=== PATIENT | female | born 1975 | race American Indian/Alaskan Native ===

== ENCOUNTER 2017-01-18 01:59 | Emergency (ER) | payer MEDICAID ==
[2017-01-18] MEDS ORDERED: ZOFRAN ODT PO ONE (03:36)
[2017-01-18] MEDS ORDERED: NORMODYNE IV ONE (03:42)
[2017-01-18] MEDS ORDERED: ZOFRAN IV ONE (03:42)
[2017-01-18 04:28] LABS: Hematocrit 31.4 % (30.3-42.9); Hemoglobin 10.5 gm/dl (10.1-14.3); Mean Corpuscular HGB Conc 33 % (30-34); Mean Corpuscular Hemoglobin 32 pg (28-32); Mean Corpuscular Volume 97 fl (79-97); Platelet Count 241 K/mm3 (140-440); Red Blood Count 3.25 M/mm3 (3.65-5.03)
--- NOTE | 2017-01-18 04:37 | Emergency Department Report ---
ED Headache HPI - General Chief Complaint: Extremity Injury, Lower Stated Complaint: VOMITING,FEET SWOLLEN Time Seen by Provider: 01/18/17 02:50 Source: patient Exam Limitations: no limitations - History of Present Illness Initial Comments: 41-year-old female with a past medical history migraines and hypertension presents to the hospital status post vaginal delivery on the . Patient states that the child was 36 wks premature. Patient was discharged on the at 1 PM and felt fine. Since she's been home she has developed lower extremity swelling and headache. Pain rated 8/10 intensity. Patient has a long-standing history of migraines since her 20s and also a history of hypertension even prior to . During her she was taking Procardia 30 mg which was increased to 60 mg towards the end of her . She was informed that the higher blood pressure was secondary to weight gain from the . Closer to her delivery patient was developing more frequent worsening headache and elevated blood pressure and therefore was delivered. She denies diagnosis of preeclampsia. Patient had her last dose of Procardia 60 mg at 9 AM prior to being discharged from the hospital. At the patient returned home she had episode of vomiting, complains of pressure behind her eyes that feels like the beginning of her migraine, and lower extremity edema with pain to her feet with palpation and walking. Patient denies having anything previous history of vomiting with previous headaches/migraines and therefore was concerned. Patient also states that the physicians at [facility] stated she would like any further workup of her chronic headaches including a CT scan was to could not perform because she was . Patient insisting that we take her blood pressure from her left arm because it is more accurate than her right. No complaints of chest pain, shortness of breath, or abdominal pain. Allergies/Adverse Reactions: Allergies pineapple Allergy (Verified 01/18/17 02:10) Swelling Home Medications: Ambulatory Orders Docusate Sodium [Colace] 100 mg PO BID PRN 01/18/17 Ferrous Sulfate [Feosol] 325 mg PO BID 01/18/17 Ibuprofen [Motrin] 800 mg PO Q8HR PRN 01/18/17 NIFEdipine [Nifedipine ER] 60 mg PO DAILY 01/18/17 ED Review of Systems ROS: Stated complaint: VOMITING,FEET SWOLLEN Other details as noted in HPI Comment: All other systems reviewed and negative Other: Constitutional: No fevers chills Eyes: No eye pain visual changes ENT: No ear pain or throat pain Neck: Denies pain Respiratory: Denies cough wheezing shortness of breath Cardiovascular: Denies chest pain, palpitations, syncope GI: Denies abdominal pain, nausea, vomiting, diarrhea : Denies dysuria Musculoskeletal: as per hpi Skin: Denies rash, lesions, erythema Neurologic: as per hpi Psychiatric: Denies suicidal ideation, hallucinations ED Past Medical Hx - Past Medical History Previous Medical History?: Yes Hx Hypertension: Yes Hx Headaches / Migraines: Yes - Surgical History Past Surgical History?: No - Social History Smoking Status: Never Smoker Substance Use Type: None - Medications Home Medications: Home Medications Medication Instructions Recorded Confirmed Last Taken Type Docusate Sodium [Colace] 100 mg PO BID PRN 01/18/17 01/18/17 Unknown History Ferrous Sulfate [Feosol] 325 mg PO BID 01/18/17 01/18/17 Unknown History Ibuprofen [Motrin] 800 mg PO Q8HR PRN 01/18/17 01/18/17 Unknown History NIFEdipine [Nifedipine ER] 60 mg PO DAILY 01/18/17 01/18/17 Unknown History ED Physical Exam - General Limitations: No Limitations - Other Other exam information: General: No limitations, patient is alert in no acute distress Head exam: Atraumatic, normocephalic Eyes exam: Normal appearance ENT: Moist mucous membrane, normal oropharynx Neck exam: Normal inspection, full range of motion, no meningismus Respiratory exam: Clear to auscultation bilateral, no wheezes, rales, crackles Cardiovascular: Normal rate and rhythm, normal heart sounds Abdomen: Soft, nondistended, and nontender, with normal bowel sounds, no rebound, or guarding Extremity: Full range of motion normal inspection, 1+ edema to lower extremities to palpation Back: Normal Inspection, full range of motion, no tenderness Neurologic: Alert, oriented x3, cranial nerves intact, no motor or sensory deficit Psychiatric: normal affect, normal mood Skin: Warm, dry, intact ED Course Vital Signs 01/18/17 01/18/17 01/18/17 02:00 02:46 03:44 Temperature 98 F Pulse Rate 81 74 95 H Respiratory 20 16 18 Rate Blood Pressure 141/97 Blood Pressure 140/85 160/95 [Left] O2 Sat by Pulse 100 95 100 Oximetry 01/18/17 01/18/17 01/18/17 04:10 04:21 05:48 Temperature Pulse Rate 79 95 H 87 Respiratory Rate Blood Pressure 160/95 Blood Pressure 123/81 130/83 [Left] O2 Sat by Pulse 100 Oximetry - Reevaluation(s) Reevaluation #1: 01/18/17 04:33 CT is ready for the patient at this time. Patient does not want to go to CT because she was to feed her baby. I went to ask patient to delay feeding the baby so that she may obtain her CT as soon as possible. Patient is upset stating that I expect her baby just scream and be hungry. I informed her that I wanted to get the images as soon as possible so that we can clear her head, get the report, and so that I may contact her [facility] doctors with the result. Pt seemed initially very concerned and anxious about her symptoms now is trying to get the study study as soon as possible. Patient states this is ridiculous and wants to leave at this time and that I was on professional. I was not trying to inconvenience patient only get the studies that time to speak to her physicians at another facility. Patient received labetalol with improvement in BP. Lab results pending at this time. child appears to be calm and in no acute distress at this time. Reevaluation #2: 01/18/17 04:52 Patient really change her mind about leaving and now is agreeable to receiving a CT at this time but only after she finishes feeding the baby Reevaluation #3: 01/18/17 06:21 Patient does report feeling better at this time and blood pressure remains control. Informed history be transferred to [facility]. - Consultations Consultation #1: 01/18/17 05:36 Dr Garnett WORK DISTRIBUTOR at [facility] was consulted. She is familiar with the patient. He states that patient has had ongoing issues with her blood pressure and headache throughout her . They are willing to accept patient back to the hospital for transfer pending CT results. Consultation #2: 01/18/17 06:12 ct resulted at this time. OB repaged ED Medical Decision Making - Lab Data Result diagrams: 01/18/17 04:03 01/18/17 04:03 Lab Results 01/18/17 01/18/17 01/18/17 Range/Units 04:00 04:03 04:03 WBC 8.0 (4.5-11.0) K/mm3 RBC 3.25 L (3.65-5.03) M/mm3 Hgb 10.5 (10.1-14.3) gm/dl Hct 31.4 (30.3-42.9) % MCV 97 (79-97) fl MCH 32 (28-32) pg MCHC 33 (30-34) % RDW 13.0 L (13.2-15.2) % Plt Count 241 (140-440) K/mm3 Sodium 142 (137-145) mmol/L Potassium 3.7 (3.6-5.0) mmol/L Chloride 103.2 (98-107) mmol/L Carbon Dioxide 23 (22-30) mmol/L Anion Gap 20 mmol/L BUN 10 (7-17) mg/dL Creatinine 0.5 L (0.7-1.2) mg/dL Estimated GFR > 60 ml/min BUN/Creatinine Ratio 20.00 % Glucose 94 (65-100) mg/dL Uric Acid (3.5-7.6) mg/dL Calcium 8.8 (8.4-10.2) mg/dL Total Bilirubin 0.3 (0.1-1.2) mg/dL Direct Bilirubin < 0.2 (0-0.2) mg/dL Indirect Bilirubin 0.1 mg/dL AST 26 (5-40) units/L ALT 15 (7-56) units/L Alkaline Phosphatase 95 (35-129) units/L Lactate Dehydrogenase (91-180) units/L Total Protein 6.9 (6.3-8.2) g/dL Albumin 3.5 L (3.9-5) g/dL Albumin/Globulin Ratio 1.0 % Urine Color Yellow (Yellow) Urine Turbidity Clear (Clear) Urine pH 6.0 (5.0-7.0) Ur Specific [place] 1.013 (1.003-1.030) Urine Protein <15 mg/dl (Negative) mg/dL Urine Glucose (UA) Neg (Negative) mg/dL Urine Ketones Neg (Negative) mg/dL Urine Blood Sm (Negative) Urine Nitrite Neg (Negative) Urine Bilirubin Neg (Negative) Urine Urobilinogen < 2.0 (<2.0) mg/dL Ur Leukocyte Esterase Tr (Negative) Urine WBC (Auto) 3.0 (0.0-6.0) /HPF Urine RBC (Auto) 1.0 (0.0-6.0) /HPF U Epithel Cells (Auto) 1.0 (0-13.0) /HPF 01/18/17 Range/Units 04:03 WBC (4.5-11.0) K/mm3 RBC (3.65-5.03) M/mm3 Hgb (10.1-14.3) gm/dl Hct (30.3-42.9) % MCV (79-97) fl MCH (28-32) pg MCHC (30-34) % RDW (13.2-15.2) % Plt Count (140-440) K/mm3 Sodium (137-145) mmol/L Potassium (3.6-5.0) mmol/L Chloride (98-107) mmol/L Carbon Dioxide (22-30) mmol/L Anion Gap mmol/L BUN (7-17) mg/dL Creatinine (0.7-1.2) mg/dL Estimated GFR ml/min BUN/Creatinine Ratio % Glucose (65-100) mg/dL Uric Acid 2.9 L (3.5-7.6) mg/dL Calcium (8.4-10.2) mg/dL Total Bilirubin (0.1-1.2) mg/dL Direct Bilirubin (0-0.2) mg/dL Indirect Bilirubin mg/dL AST (5-40) units/L ALT (7-56) units/L Alkaline Phosphatase (35-129) units/L Lactate Dehydrogenase 262 H (91-180) units/L Total Protein (6.3-8.2) g/dL Albumin (3.9-5) g/dL Albumin/Globulin Ratio % Urine Color (Yellow) Urine Turbidity (Clear) Urine pH (5.0-7.0) Ur Specific Plover (1.003-1.030) Urine Protein (Negative) mg/dL Urine Glucose (UA) (Negative) mg/dL Urine Ketones (Negative) mg/dL Urine Blood (Negative) Urine Nitrite (Negative) Urine Bilirubin (Negative) Urine Urobilinogen (<2.0) mg/dL Ur Leukocyte Esterase (Negative) Urine WBC (Auto) (0.0-6.0) /HPF Urine RBC (Auto) (0.0-6.0) /HPF U Epithel Cells (Auto) (0-13.0) /HPF - Radiology Data Radiology results: report reviewed (CT head: naf) - Medical Decision Making Other diagnoses, preeclampsia, edema At this time no ketones in the urine. I suspect the patient's uncontrolled hypertension and headaches are chronic and been an issue throughout her . Lower extremity edema is likely related to typical edema. However, given the patient's complicated history I will transfer her to her [facility] doctors for evaluation and monitoring since they are familiar with the patient. - Differential Diagnosis chronic hypertension, migraines, intracranial hemorrhage, intracranial mass Critical Care Time: No Critical care attestation.: If time is entered above; I have spent that time in minutes in the direct care of this critically ill patient, excluding procedure time. ED Disposition Clinical Impression: edema, Headache, Uncontrolled hypertension Disposition: DC/TX ANOTHER TYPE HEALTHCARE Is pt being admited?: No Condition: Stable Time of Disposition: 06:13 (Dr Garnett/chemical laboratory scientist/[facility])
[2017-01-18 04:52] LABS: Alanine Aminotransferase 15 units/L (7-56); Albumin 3.5 g/dL (3.9-5); Alkaline Phosphatase 95 units/L (35-129); Anion Gap 20 mmol/L; Bilirubin,Total 0.3 mg/dL (0.1-1.2); Blood Urea Nitrogen 10 mg/dL (7-17); Calcium 8.8 mg/dL (8.4-10.2); Carbon Dioxide 23 mmol/L (22-30); Chloride 103.2 mmol/L (98-107); Glucose 94 mg/dL (65-100); Potassium 3.7 mmol/L (3.6-5.0); Sodium 142 mmol/L (137-145); Total Protein 6.9 g/dL (6.3-8.2)
[2017-01-18 04:54] LABS: Uric Acid 2.9 mg/dL (3.5-7.6)
[2017-01-18 04:56] LABS: Bilirubin,Direct < 0.2 mg/dL (0-0.2); Bilirubin,Indirect 0.1 mg/dL
[2017-01-18 05:01] LABS: Bilirubin,Urine NEG (Negative); Blood,Urine SM (Negative); Ketones,Urine NEG (Negative); Leukocyte Esterase,Urine TR (Negative); Nitrite,Urine NEG (Negative); Protein,Urine <15 mg/dL mg/dL (Negative); Urobilinogen,Urine < 2.0 mg/dL (<2.0)
--- NOTE | 2017-01-18 06:10 | Cat Scan Report ---
FINAL REPORT PROCEDURE: CT HEAD/BRAIN WO CON TECHNIQUE: Computerized tomography of the head was performed without contrast material. HISTORY: Headache. Chronic headache worse COMPARISON: No prior studies are available for comparison. FINDINGS: Skull and scalp: Normal. Paranasal sinuses: Normal. Ventricles and subarachnoid spaces: Normal. Cerebrum: No evidence of hemorrhage, acute infarction or mass . Cerebellum and brainstem: No evidence of hemorrhage, acute infarction or mass. Vasculature: Normal. Comments: None. IMPRESSION: 1. Overall negative CT brain without contrast with no CT evidence of intracranial hemorrhage or edema or infarct or shift or distinct acute finding. 2. If there is continued concern for brain abnormality or unexplained symptoms, additional evaluation advised only if indicated.
[2017-01-18 08:08] VITALS: BP 138/89
[2017-01-18] MEDS ORDERED: TYLENOL ONE (08:28)
[2017-01-18] MEDS ORDERED: TYLENOL PO ONE (08:50)
== END 2017-01-18 09:24 | disposition other institution (70) ==
LOC: ED 01:59
DX: O90.89 Other complications of the puerperium, not elsewhere classified (principal); I10 Essential (primary) hypertension; G43.909 Migraine, unspecified, not intractable, without status migrainosus; Z91.018 Allergy to other foods
CPT/HCPCS: 36415; 70450; 80048; 80074; 81001; 83615; 84550; 85027; 96374; 96375; 99285; J2405; Q0162